=== PATIENT | female | born 1955 | race Caucasian/White ===

== ENCOUNTER 2017-09-29 11:07 | Emergency (ER) | payer MEDICAID ==
[2017-09-29 11:07] VITALS: BMI 32.8
[2017-09-29 11:13] VITALS: BP 146/79; PULSE 87; RESP 18; TEMP 97.6; O2SAT 99
[2017-09-29] MEDS ORDERED: Lidocaine 5% Patch TD STA (11:28)
[2017-09-29] MEDS ORDERED: Oxycodone/Acetaminophen 5/325 mg Tab PO STA (11:29)
[2017-09-29] MEDS ORDERED: Oxycodone/Acetaminophen 5/325 mg Tab ONE (11:36)
[2017-09-29] MEDS ORDERED: Lidocaine 5% Patch TD ONE (11:36)
--- NOTE | 2017-09-29 11:36 | C.PDOC ---
History Of Present Illness 62 year old female presents to the ER complaining of left lower back pain which has been present for 8 weeks. Patient states that the pain radiates down to her right buttock and right posterior thigh. Patient states that she was seen by her PMD twice who prescribed her Tylenol, Toradol, Ibuprofen, and Gabapentin. Patient states that she started physical therapy but the physical therapy is making the pain worse. She states she stopped taking the Toradol because it upset her stomach. Time Seen by Provider: 09/29/17 11:19 Chief Complaint (Nursing): Lower Extremity Problem/Injury History Per: Patient History/Exam Limitations: no limitations Onset/Duration Of Symptoms: Days Current Symptoms Are (Timing): Still Present Severity: Moderate Associated Symptoms: None Past Medical History Reviewed: Historical Data, Nursing Documentation, Vital Signs Vital Signs: Last Vital Signs Temp 97.6 F 09/29/17 11:10 Pulse 87 09/29/17 11:10 Resp 18 09/29/17 11:10 BP 146/79 09/29/17 11:10 Pulse Ox 99 09/29/17 12:34 - Medical History PMH: Arthritis, Asthma, Back Problems, Depression, Diabetes, Gastrointestinal Ulcer, HTN, Hypercholesterolemia, Hypothyroidism Surgical History: No Surg Hx - [facility] Procedures TETANUS TOXOID ADMINIST (02/10/14) Family History: States: No Known Family Hx - Social History Hx Tobacco Use: No Hx Alcohol Use: No Hx Substance Use: No - Immunization History Hx Tetanus Toxoid Vaccination: No Hx Influenza Vaccination: No Hx Pneumococcal Vaccination: No Review Of Systems Constitutional: Negative for: Fever Cardiovascular: Negative for: Chest Pain, Palpitations Respiratory: Negative for: Cough, Shortness of Breath Gastrointestinal: Negative for: Vomiting, Abdominal Pain Genitourinary: Positive for: Frequency. Negative for: Dysuria, Incontinence Musculoskeletal: Positive for: Back Pain Neurological: Negative for: Weakness, Numbness, Headache Physical Exam - Physical Exam Appears: Non-toxic, No Acute Distress, Other (uncomfortable) Skin: Warm, Dry, No Rash Head: Atraumatic, Normacephalic Eye(s): bilateral: Normal Inspection, EOMI Nose: Normal Oral Mucosa: Moist Neck: Supple Chest: Symmetrical Cardiovascular: Rhythm Regular Respiratory: Normal Breath Sounds, No Accessory Muscle Use, No Rales, No Rhonchi , No Wheezing Gastrointestinal/Abdominal: Normal Exam, Soft, No Tenderness Back: Normal Inspection (no erythema, swelling or bulging), Paraspinal Tenderness (paralumbar right side greater) Extremity: Normal ROM Neurological/Psych: Oriented x3, Normal Speech, Normal Motor, Normal Sensation Gait: With Assistance (uses cane) ED Course And Treatment O2 Sat by Pulse Oximetry: 99 (RA) Pulse Ox Interpretation: Normal Medical Decision Making Medical Decision Making: Impression: Lower Back Pain, Sciatica Plan: --Toradol --Percocet --Urinalysis Progress: UA shows trace LE. Asymptomatic, no infection. Re-Eval: 12:40 Patient is laying comfortably in bed and reports feeling better. Pain is improving. She is ambulatory with her cane. She feels comfortable going home and will be discharge. Rx given. Advise follow up with her PCP. Disposition Counseled Patient/Family Regarding: Diagnosis, Need For Followup, Rx Given - Disposition Referrals: Noe Chen, TRUDI, [facility] [Advanced Practice Nurse] - Disposition: HOME/ ROUTINE Disposition Time: 12:44 Condition: IMPROVED Additional Instructions: Take medication for 4 days for back pain follow up with your doctor for further care Maddi medicamentos tommy 4 gallo para el dolor de espalda Ej un seguimiento con sharma mdico para recibir ms atencin Prescriptions: Prednisone 40 mg PO DAILY #4 tablet Instructions: Sciatica (ED) Forms: Sisteer (Arabic), Accompanied To ED By: Print Language: KOSOVAN - POA Present On Arrival: None - Clinical Impression Clinical Impression: Low back pain, Sciatica - PA / SALES ENABLEMENT MANAGER / Resident Statement MD/DO has reviewed & agrees with the documentation as recorded. - Scribe Statement The provider has reviewed the documentation as recorded by the Scribe Marty Oscar Provider Attestation All medical record entries made by the Scribe were at my direction and personally dictated by me. I have reviewed the chart and agree that the record accurately reflects my personal performance of the history, physical exam, medical decision making, and the department course for this patient. I have also personally directed, reviewed, and agree with the discharge instructions and disposition.
[2017-09-29 11:53] LABS: SQUAMOUS EPITHIAL < 1 /hpf (0-5); URINE BILIRUBIN NEGATIVE (NEGATIVE); URINE BLOOD NEGATIVE (NEGATIVE); URINE CLARITY Clear (Clear); URINE COLOR Yellow (YELLOW); URINE GLUCOSE (UA) NORMAL (Normal); URINE LEUKOCYTE ESTERASE TRACE Leu/uL (Negative); URINE NITRATE NEGATIVE (NEGATIVE); URINE PROTEIN NEGATIVE (NEGATIVE); URINE UROBILINOGEN NORMAL mg/dL (0.2-1.0)
== END 2017-09-29 13:02 | disposition home or self-care (01) ==
LOC: C.ER 11:07
DX: M54.41 Lumbago with sciatica, right side (principal)
CPT/HCPCS: 81001; 82948; 96372; 99285; J1885